=== PATIENT | male | born 1970 | race Caucasian/White ===

== ENCOUNTER 2021-06-07 21:43 | Outpatient (CLI) | payer BC, SELFPAY ==
[2021-06-07 22:13] LABS: Absolute Lymphocyte Count 2.09 X10^3/uL (0.83-4.51); Absolute Neutrophil Count 3.5 X10^3/uL (2.0-7.7); Basophil# 0.03 X10^3/uL; Basophil% 0.5 % (0-1); Eosinophil# 0.42 X10^3/uL; Eosinophils% 6.4 % (0-5); Hematocrit 42.8 % (40-54); Hemoglobin 14.7 g/dL (13.0-16.5); Lymphocyte # 2.09 X10^3/ul (0.83-4.51); Lymphocyte % 31.7 % (19-41); Mean Corp Hgb Conc 34.3 g/dL (32-36); Mean Corpuscular Hgb 30.2 pg (27.0-32.0); Mean Corpuscular Volume 87.9 fL (80-94); Monocyte# 0.54 X10^3/uL; Monocyte% 8.2 % (0-10); NRBC Flagged by Analyzer 0 % (0-5); Neutrophil % 52.9 % (47-70); Platelet Count 328 K/mm3 (150-450); RBC Distribution Width CV 12.2 % (11.6-14.6); RBC Distribution Width SD 39.2 fl (35.1-43.9); Red Blood Count 4.87 M/mm3 (4.6-6.2); White Blood Count 6.6 K/mm3 (4.4-11.0)
[2021-06-07 22:19] LABS: ALB/GLOB Ratio 1.2 RATIO (0.9-2.4); AST(SGOT) 24 U/L (15-37); Alanine Aminotransfer ALT/SGPT 45 U/L (16-61); Alkaline Phosphatase 66 U/L (45-117); Anion Gap 6 (5-15); BUN 20 mg/dL (7-18); BUN/Creat Ratio 17.4 RATIO (10-20); Calcium,Total 8.7 mg/dL (8.5-10.1); Chloride 107 mmol/L (98-107); Cholesterol 226 mg/dL (200); Creatinine, Serum 1.15 mg/dL (0.70-1.30); EST Glomerular Filtration Rate 72 mL/min (>60); Est Glom Filt Rate - Afr Amer 87 mL/min (>60); Globulin 3.3 g/dL (2.2-4.2); Glucose 104 mg/dL (74-106); High Density Lipoprotein 42 mg/dL; Potassium 3.9 mmol/L (3.5-5.1); Protein, Total 7.3 g/dL (6.4-8.2); Sodium Level 139 mmol/L (136-145); Thyroid Stim Hormone (TSH) 1.39 uIU/mL (0.358-3.74); Triglycerides 355 mg/dL; Very Low Density Lipoprotein 71 mg/dL (5-40)
== END 2021-06-07 23:59 | disposition home or self-care (01) ==
PROVIDERS: Referring Provider Nurse Practitioner; Visit Provider Nurse Practitioner
DX: I10 Essential (primary) hypertension (principal)
CPT/HCPCS: 80053; 80061; 84443; 85025

== ENCOUNTER → 2022-08-21 | Outpatient (CLI) | payer BC, SELFPAY ==
[2022-08-21 20:55] LABS: Absolute Lymphocyte Count 2.03 X10^3/uL (0.83-4.51); Absolute Neutrophil Count 4.3 X10^3/uL (2.0-7.7); Basophil# 0.04 X10^3/uL; Basophil% 0.6 % (0-1); Eosinophil# 0.26 X10^3/uL; Eosinophils% 3.6 % (0-5); Hematocrit 45.5 % (40-54); Lymphocyte # 2.03 X10^3/ul (0.83-4.51); Lymphocyte % 28.5 % (19-41); Mean Corp Hgb Conc 35.2 g/dL (32-36); Mean Corpuscular Hgb 31.3 pg (27.0-32.0); Mean Corpuscular Volume 88.9 fL (80-94); Mean Platelet Vol. 10.1 fl (6.2-12.0); Monocyte# 0.46 X10^3/uL; Monocyte% 6.5 % (0-10); NRBC Flagged by Analyzer 0 % (0-5); Neutrophil # 4.33 X10^3/uL (2.7-7.7); Neutrophil % 60.7 % (47-70); Platelet Count 341 K/mm3 (150-450); RBC Distribution Width CV 12.1 % (11.6-14.6); RBC Distribution Width SD 39.6 fl (35.1-43.9); Red Blood Count 5.12 M/mm3 (4.6-6.2); White Blood Count 7.1 K/mm3 (4.4-11.0)
[2022-08-21 21:16] LABS: ALB/GLOB Ratio 1.1 RATIO (0.9-2.4); AST(SGOT) 27 U/L (15-37); Alanine Aminotransfer ALT/SGPT 41 U/L (16-61); Alkaline Phosphatase 74 U/L (45-117); Anion Gap 5 (5-15); BUN 17 mg/dL (7-18); CRP, High Sensitivity Cardiac 0.46 mg/L; Calcium,Total 8.9 mg/dL (8.5-10.1); Chloride 106 mmol/L (98-107); Cholesterol 227 mg/dL (200); Creatinine, Serum 1.21 mg/dL (0.70-1.30); EST Glomerular Filtration Rate 67 mL/min (>60); Est Glom Filt Rate - Afr Amer 81 mL/min (>60); Globulin 3.7 g/dL (2.2-4.2); Glucose 114 mg/dL (74-106); High Density Lipoprotein 51 mg/dL; PSA,Total - Annual Screen 0.46 ng/mL (0.00-4.00); Potassium 4.2 mmol/L (3.5-5.1); Protein, Total 7.7 g/dL (6.4-8.2); Sodium Level 138 mmol/L (136-145); Triglycerides 507 mg/dL
== END | disposition home or self-care (01) ==
PROVIDERS: Visit Provider Nurse Practitioner
DX: I10 Essential (primary) hypertension (principal); E78.5 Hyperlipidemia, unspecified; R35.0 Frequency of micturition
CPT/HCPCS: 80053; 80061; 84153; 85025; 86141; G0103

== ENCOUNTER → 2023-03-08 | Outpatient (CLI) | payer BC, SELFPAY ==
--- OUTSIDE RECORDS SUMMARY | 2023-03-08 22:16 | XMS RPT_ITS | CCD ---
Author Name Unknown Address [address] [place] [address] Organization [facility] Care Team Providers Care Livestock Rancher Name Role Phone Unavailable Primary Care Provider Ms. Breann Hawkins Primary Care Unavailab Dr. Lucinda Ledbetter Attending Lucinda Hill DO Unavailable [phone] Unavailable AHSAN MAYEN Referring AHSAN Gallardo Attending AHSAN Gallardo Referring AHSAN Gallardo Attending AHSAN Gallardo Attending AHSAN Gallardo Attending AHSAN Gallardo Attending aMriah mendoza Medications Completed/Discontinued Medications Medication Drug Class(es) Dates Sig (Normalized) Sig (Original) ibuprofen 200 mg oral tablet (4 sources) Nonsteroidal Anti-inflammatory Drug take 1 tablet by mouth every six hours as needed ibuprofen (MOTRIN) 200 mg tablet Take 200 mg by mouth every 6 hours as needed. 0 Active Problems Problem Classification Problem Date Documented Da te Episodic/Chronic Essential hypertension (6 sources) Essential (primary) hypertension; Translations: [Unspecified essential hypertension] Onset: 08-20-2022 11-02-2022 Chronic Fracture of lower limb (10 sources) Displaced oblique fracture of shaft of right fibula, initial encounter for closed fracture; Translations: [Nondisplaced fracture of medial malleolus of right tibia, initial encounter for closed fracture] Onset: 10-30-2022 11-11-2022 Episodic Other injuries and conditions due to external causes (7 sources) Unspecified injury of right ankle, initial encounter; Translations: [Unspecified injury of right ankle, initial encounter] Onset: 09-05-2023 Episodic Other non-traumatic joint disorders (2 sources) Acute ankle pain; Translations: [Pain in right ankle and joints of right foot] 11-11-2022 Episodic Other non-traumatic joint disorders (1 source) Pain in right ankle and joints of right foot; Translations: [Acute right ankle pain] Onset: 11-05-2022 Episodic Unclassified (1 source) Established Patient Onset: 11-08-2022 Results Test Name Value Interpretation Reference Range Facil ity Vital Signs Date Time Vital Sign Value Performing Clinician Faci lity 01-10-2023 09:26-0500 Body height 177.8 cm Ahsan Faheem DPM Work Phone: [facility] 01-10-2023 09:26-0500 Body weight 83.92 kg Ahsan Faheem DPM Work Phone: [facility] 01-10-2023 09:26-0500 Respiratory rate 18 /min Ahsan Faheem DPM Work Phone: [facility] 12-13-2022 15:01-0400 Body height 175.3 cm Ahsan Faheem DPM Work Phone: [facility] 12-13-2022 15:01-0400 Body temperature 98.2 [degF] Ahsan Faheem DPM Work Phone: [facility] 12-13-2022 15:01-0400 Body weight 83.92 kg Ahsan Faheem DPM Work Phone: [facility] 11-22-2022 09:23-0400 Body height 177.8 cm Ahsan Faheem DPM Work Phone: [facility] 11-22-2022 09:23-0400 Body weight 83.92 kg Ahsan Faheem DPM Work Phone: [facility] 11-22-2022 09:23-0400 Respiratory rate 16 /min Ahsan Faheem DPM Work Phone: [facility] 11-08-2022 09:40-0400 Body height 177.8 cm Ahsan Faheem DPM Work Phone: [facility] 11-08-2022 09:40-0400 Body weight 83.92 kg Ahsan Faheem DPM Work Phone: [facility] 11-08-2022 09:40-0400 Respiratory rate 16 /min Ahsan Mayen DPM Work Phone: [facility] 10-30-2022 09:40-0400 Body temperature 97.7 [degF] Lucinda Joanne DO [facility] 10-30-2022 09:40-0400 Body weight 83.9 kg Lucinda Joanne DO [facility] 10-30-2022 09:40-0400 Diastolic blood pressure 110 mm[Hg] Lucinda Joanne DO [facility] 10-30-2022 09:40-0400 Heart rate 85 /min Lucinda Joanne DO [facility] 10-30-2022 09:40-0400 Respiratory rate 16 /min Lucinda Joanne DO [facility] 10-30-2022 09:40-0400 SaO2% (BldA) [Mass fraction] 97 % Lucinda Joanne DO [facility] 10-30-2022 09:40-0400 Systolic blood pressure 186 mm[Hg] Lucinda Joanne DO [facility] Encounters Encounter Date Encounter Type Care Provider Facility Start: 01-10-2023 End: 01-10-2023 ambulatory AHSAN MAYEN Facility:[facility] Start: 01-10-2023 End: 01-10-2023 Patient encounter procedure Ahsan Real Faheem DPM Work Phone: [facility] Procedures Date Procedure Procedure Detail Performing Clinician Start: 01-13-2023 Radex ankle complete minimum 3 views Melvin Beaujon DPM Work Phone: Start: 11-25-2022 Radex ankle complete minimum 3 views Melvin Beaujon DPM Work Phone: Start: 10-30-2022 Strapping ankle &/foot Lucinda Rubio DO Plan of Treatment Date Care Activity Detail Author Start: 10-30-2022 End: 10-30-2022 X-Ray External - [facility] Start: 10-26-2022 Covid-19 Vaccine ( season) Covid-19 Vaccine () [facility] Start: 10-26-2022 Influenza vaccination [facility] Start: 02-25-2022 DEPRESSION ASSESSMENT DEPRESSION ASSESSMENT [facility] Start: 09-10-2021 SHINGRIX VACCINE (1 of 2) SHINGRIX VACCINE (1 of 2) [facility] Start: 03-02-2021 Covid-19 Vaccine (3 - Pfizer series) Covid-19 Vaccine (3 - Pfizer series) [facility] Start: 09-10-2016 COLOGUARD (FIT-DNA) COLOGUARD (FIT-DNA) [facility] Start: 09-10-2016 Colonoscopy COLONOSCOPY [facility] Start: 09-10-2016 COLORECTAL CANCER SCREENING COLORECTAL CANCER SCREENING [facility] Start: 09-10-[address] COLONOGRAPHY [facility] Start: 09-10-2016 DIABETES SCREEN DIABETES SCREEN [facility] Start: 09-10-2016 Diabetes Screening Diabetes Screening [facility] Start: 09-10-2016 FECAL OCCULT BLOOD FECAL OCCULT BLOOD [facility] Start: 09-10-2016 SIGMOIDOSCOPY SIGMOIDOSCOPY [facility] Start: 09-10-2006 Lipid 1996 panel - Serum or Plasma Lipid Screening [facility] Start: 09-10-2006 LIPID SCREEN LIPID SCREEN [facility] Start: 09-10-1990 Urine microalbumin profile [facility] Start: 09-10-1989 Annual PCP Team Chronic Disease Visit Annual PCP Team Chronic Disease Visit [facility] Start: 09-10-1989 BP Controlled (<130/80) BP Controlled (<130/80) [facility] Start: 09-10-1989 HEPATITIS C SCREENING HEPATITIS C SCREENING [facility] Start: 09-10-1989 HIV SCREENING HIV SCREENING [facility] Start: 03-13-1972 COVID-19 VACCINE (#1) COVID-19 VACCINE (#1) [facility] Start: 1970 HEPATITIS B (1 of 3 - 3-dose series) HEPATITIS B (1 of 3 - 3-dose series) [facility] Start: 1970 Hepatitis B Vaccine (1 of 3 - 3-dose series) Hepatitis B Vaccine (1 of 3 - 3-dose series) [facility] Payers Date Payer Category Payer Unknown [employer]ICHOLE FRANCIS PPO [id number] 2019-Present [phone] [id number] [place] [address] PPO [id number] 2019 Unknown [id number] 1970 Unknown [id number] Social History Date Type Detail Facility Tobacco smoking stat [facility] Tobacco smoking consumption unknown [facility] Start: 1970 Sex Assigned At Not on file [facility] Start: 11-02-2022 End: 11-08-2022 Gender identity Not on file [facility] Start: 11-02-2022 End: 11-08-2022 Patient currently uses alcohol Patient currently uses alcohol. [facility] Assertion Never smoker (Ne jimbo Smoked) [facility] Start: 11-02-2022 [facility] End: 02-26-2012 History of tobacco use Current smoker [facility] End: 02-26-2012 History of tobacco use Cigarette Smoker [facility] Start: 11-02-2022 Tobacco use and exposure Former smokeless tobacco user [facility] End: 02-25-2022 History of tobacco use User of smokeless tobacco [facility] Start: 11-08-2022 End: 01-10-2023 Alcohol intake Current drinker of alcohol (finding) [facility] National Score (1-100), lower number is lower risk 59 [facility] Start: 11-02-2022 Alcohol Comment social [place] [facility] Clinical Notes 10-31-2022 to 01-13-2023 Ahsan Mayen DPM - 01/13/2023 10:16 AM Yumiko Gutierrez MA - 01/10/2023 9:26 AM Ahsan Deras DPM - 12/13/2022 3:05 PM Jeffery Galindo Tech - 12/13/2022 3:00 PM EDT Note Date & Type Note Facility 01-13-2023 Note HNO ID: [id number] Author: Ahsan Mayen DPM Service: ? Author Type: Physician Type: Progress Notes Filed: 01/30/2023 8:56 AM Note Text: CC: right ankle injury HPI: This 52 year old male with PMH indicated below presents today for follow up of right fibular fracture. Initial injury occurred on 10/28/22. Since last visit patient has been transitioned out of wearing the lace up ankle brace and has been weight bearing in regular shoes. He states he is doing well and is having minimal pain at this point. Denies any other new pedal complaints today. No primary care provider on file. PAST MEDICAL HISTORY Diagnosis Date Essential hypertension Current Outpatient Medications Medication Sig Dispense Refill metoprolol tartrate, short acting, (LOPRESSOR) 50 mg tablet Take 50 mg by mouth twice daily. lisinopril (ZESTRIL) 20 mg tablet Take 1 tablet by mouth every afternoon. ibuprofen (MOTRIN) 200 mg tablet Take 200 mg by mouth every 6 hours as needed. No current facility-administered medications for this visit. ALLERGIES No Known Allergies PAST SURGICAL HISTORY Procedure Laterality Date KNEE SURGERY HX Right Social History Tobacco Use Smoking status: Former Types: Cigarettes Quit date: 2012 Years since quittin. Smokeless tobacco: Former Quit date: 2022 Substance Use Topics Alcohol use: Yes Comment: social Drug use: Never History reviewed. No pertinent family history. REVIEW OF SYSTEMS See Tech Note Physical examination: On General Observation: Patient is a pleasant, cooperative, well developed 52 year old adult male. The patient is alert and oriented to time, place and person. Patient has normal affect and mood. Resp 18 Ht 177.8 cm (5' 10 ) Wt 83.9 kg (185 lb) BMI 26.54 kg/m? Patient presents WBAT in normal shoes Vascular: DP and PT pulses are palpable. CFT less than 3 seconds to all digits bilateral. Skin temperature is warm to warm from proximal to distal bilateral. Hair growth is noted. No edema noted overlying right ankle. Neuro: Light touch intact bilateral. No clonus noted. Derm: Skin texture and turgor within normal limits. No rashes, subcutaneous nodules, or open lesions noted. No hyperkeratotic tissue. No ecchymosis noted. No fracture blisters noted. Musc: Ecchymosis is Absent to the right. Edema is absent over the lateral malleolus. Palpation to the medial ankle is non-painful. No high fibular pain is noted. There is not pain to palpation of the syndesmosis or with external rotation of the foot at the ankle joint. No pain to palpation is noted overlying the lateral malleolus. No pain to palpation is noted overlying the ATFL. The peroneals appear to be intact and are not tender. No pain to the fifth metatarsal base. No pain to the medial aspect of the midfoot or navicular tuberosity. No pain to palpation anterior calcaneal process. Anterior drawer is negative. Muscle strength testing is full. Last MRI Ankle - Impression Only MRI ANKLE WO IVCON RIGHT Exam End: 11/05/2022 2:22 PM (Final result) Impression: IMPRESSION: 1. Minimally displaced oblique fracture through the lateral malleolus. 2. Complete rupture of the anterior talofibular ligament. 3. Calcaneofibular ligament is not visualized and is most likely torn. 4. Spring ligament is not clearly visualized. 5. Small tibiotalar joint effusion.... IMAGING: three views of the right ankle were obtained and evaluated today. Impression: Nearly fully healed minimally displaced ramirez B fracture of the fibula. Fibula is out to length. Ankle mortise intact with no increase in medial clear space. Normal tib fib overlap. Impression: This is a 52 year old patient presenting with isolated fibular fracture right ankle. Plan: A comprehensive history and physical examination were preformed. The patient was educated on clinical and radiographic findings, diagnosis and treatment plans. Patient state that he understands all that has been explained and all questions were answered to his apparent satisfaction. - Etiology and tx options were discussed in detail with the pt - xrays taken and reviewed with patient - Patient is progressing well with minimal symptoms at this time. Recommend continued WBAT in supportive shoe gear with ASO when performing higher impact activity for the next 4 weeks. Otherwise, he can WBAT in normal shoes. - Discussed formal PT which patient defers. Dispensed home ankle strengthening exercises and thera band. - Activities to tolerance -Follow up as needed Melvin Bonner DPM PGY-3 I personally saw and evaluated the patient. I reviewed the resident's note. I agree with the resident's assessment and plan unless otherwise noted. Ahsan Mayen DPM, [facility] 01-13-2023 History of Presen t illness Narrative CC: right ankle injury HPI: This 52 year old male with PMH indicated below presents today for follow up of right fibular fracture. Initial injury occurred on 10/28/22. Since last visit patient has been transitioned out of wearing the lace up ankle brace and has been weight bearing in regular shoes. He states he is doing well and is having minimal pain at this point. Denies any other new pedal complaints today. No primary care provider on file. PAST MEDICAL HISTORY Diagnosis Date Essential hypertension Current Outpatient Medications Medication Sig Dispense Refill metoprolol tartrate, short acting, (LOPRESSOR) 50 mg tablet Take 50 mg by mouth twice daily. lisinopril (ZESTRIL) 20 mg tablet Take 1 tablet by mouth every afternoon. ibuprofen (MOTRIN) 200 mg tablet Take 200 mg by mouth every 6 hours as needed. No current facility-administered medications for this visit. ALLERGIES No Known Allergies PAST SURGICAL HISTORY Procedure Laterality Date KNEE SURGERY HX Right Social History Tobacco Use Smoking status: Former Types: Cigarettes Quit date: 2012 Years since quittin.8 Smokeless tobacco: Former Quit date: 2022 Substance Use Topics Alcohol use: Yes Comment: social Drug use: Never History reviewed. No pertinent family history. REVIEW OF SYSTEMS See Tech Note Physical examination: On General Observation: Patient is a pleasant, cooperative, well developed 52 year old adult male. The patient is alert and oriented to time, place and person. Patient has normal affect and mood. Resp 18 Ht 177.8 cm (5' 10 ) Wt 83.9 kg (185 lb) BMI 26.54 kg/m Patient presents WBAT in normal shoes Vascular: DP and PT pulses are palpable. CFT less than 3 seconds to all digits bilateral. Skin temperature is warm to warm from proximal to distal bilateral. Hair growth is noted. No edema noted overlying right ankle. Neuro: Light touch intact bilateral. No clonus noted. Derm: Skin texture and turgor within normal limits. No rashes, subcutaneous nodules, or open lesions noted. No hyperkeratotic tissue. No ecchymosis noted. No fracture blisters noted. Musc: Ecchymosis is Absent to the right. Edema is absent over the lateral malleolus. Palpation to the medial ankle is non-painful. No high fibular pain is noted. There is not pain to palpation of the syndesmosis or with external rotation of the foot at the ankle joint. No pain to palpation is noted overlying the lateral malleolus. No pain to palpation is noted overlying the ATFL. The peroneals appear to be intact and are not tender. No pain to the fifth metatarsal base. No pain to the medial aspect of the midfoot or navicular tuberosity. No pain to palpation anterior calcaneal process. Anterior drawer is negative. Muscle strength testing is full. Last MRI Ankle - Impression Only MRI ANKLE WO IVCON RIGHT Exam End: 11/05/2022 2:22 PM (Final result) Impression: IMPRESSION: 1. Minimally displaced oblique fracture through the lateral malleolus. 2. Complete rupture of the anterior talofibular ligament. 3. Calcaneofibular ligament is not visualized and is most likely torn. 4. Spring ligament is not clearly visualized. 5. Small tibiotalar joint effusion.... IMAGING: three views of the right ankle were obtained and evaluated today. Impression: Nearly fully healed minimally displaced ramirez B fracture of the fibula. Fibula is out to length. Ankle mortise intact with no increase in medial clear space. Normal tib fib overlap. Impression: This is a 52 year old patient presenting with isolated fibular fracture right ankle. Plan: A comprehensive history and physical examination were preformed. The patient was educated on clinical and radiographic findings, diagnosis and treatment plans. Patient state that he understands all that has been explained and all questions were answered to his apparent satisfaction. - Etiology and tx options were discussed in detail with the pt - xrays taken and reviewed with patient - Patient is progressing well with minimal symptoms at this time. Recommend continued WBAT in supportive shoe gear with ASO when performing higher impact activity for the next 4 weeks. Otherwise, he can WBAT in normal shoes. - Discussed formal PT which patient defers. Dispensed home ankle strengthening exercises and thera band. - Activities to tolerance -Follow up as needed Melvin Bonner DPM PGY-3 I personally saw and evaluated the patient. I reviewed the resident's note. I agree with the resident's assessment and plan unless otherwise noted. Ahsan Mayen DPM, FACFAS REVIEW OF SYSTEMS: GENERAL: Well developed, well nourished. No acute distress PAIN: Negative for pain, history of chronic pain or current treatment for chronic pain conditions CARDIOVASCULAR: High blood pressure MSK: Negative for joint swelling SKIN: Negative for lesions, rash, itching, metal sensitivity NEURO: Negative for seizure, trauma, numbness/tingling of extremities. ENDOCRINE: Negative for diabetic associated symptoms HEMATOLOGY: Negative for excessive bleeding, clots, bleeding disorders. Yumiko Padilla MA documented in this encounter [facility] 01-10-2023 Note HNO ID: [id number] Author: Yumiko Padilla MA Service: ? Author Type: Custom Dressmaker Type: Progress Notes Filed: 01/30/2023 8:56 AM Note Text: REVIEW OF SYSTEMS: GENERAL: Well developed, well nourished. No acute distress PAIN: Negative for pain, history of chronic pain or current treatment for chronic pain conditions CARDIOVASCULAR: High blood pressure MSK: Negative for joint swelling SKIN: Negative for lesions, rash, itching, metal sensitivity NEURO: Negative for seizure, trauma, numbness/tingling of extremities. ENDOCRINE: Negative for diabetic associated symptoms HEMATOLOGY: Negative for excessive bleeding, clots, bleeding disorders. Yumiko Padilla MA [facility] 12-13-2022 Note HNO ID: [id number] Author: Ahsan Mayen DPM Service: ? Author Type: Physician Type: Progress Notes Filed: 12/26/2022 8:55 PM Note Text: CC: right ankle injury HPI: This 52 year old male with PMH indicated below presents today for follow up of right fibular fracture. Since last visit patient has been WBAT to the RLE ASO and supportive shoe gear. Relates mild occasional pain but overall improved. Relates resolution of edema. Has not returned to full activity but is gradually progressing. He denies any other pedal complaints today. No primary care provider on file. PAST MEDICAL HISTORY Diagnosis Date Essential hypertension Current Outpatient Medications Medication Sig Dispense Refill metoprolol tartrate, short acting, (LOPRESSOR) 50 mg tablet Take 50 mg by mouth twice daily. lisinopril (ZESTRIL) 20 mg tablet Take 1 tablet by mouth every afternoon. ibuprofen (MOTRIN) 200 mg tablet Take 200 mg by mouth every 6 hours as needed. No current facility-administered medications for this visit. ALLERGIES No Known Allergies PAST SURGICAL HISTORY Procedure Laterality Date KNEE SURGERY HX Right Social History Tobacco Use Smoking status: Former Types: Cigarettes Quit date: 2012 Years since quittin.8 Smokeless tobacco: Former Quit date: 2022 Substance Use Topics Alcohol use: Yes Comment: social Drug use: Never No family history on file. REVIEW OF SYSTEMS See Tech Note Physical examination: On General Observation: Patient is a pleasant, cooperative, well developed 52 year old adult male. The patient is alert and oriented to time, place and person. Patient has normal affect and mood. Temp 36.8 ?C (98.2 ?F) Ht 175.3 cm (5' 9 ) Wt 83.9 kg (185 lb) BMI 27.32 kg/m? Patient presents WBAT in CAM Boot Vascular: DP and PT pulses are palpable. CFT less than 3 seconds to all digits bilateral. Skin temperature is warm to warm from proximal to distal bilateral. Hair growth is noted. No edema noted overlying right ankle. Neuro: Light touch intact bilateral. No clonus noted. Derm: Skin texture and turgor within normal limits. No rashes, subcutaneous nodules, or open lesions noted. No hyperkeratotic tissue. No ecchymosis noted. No fracture blisters noted. Musc: Ecchymosis is Absent to the right. Edema is absent over the lateral malleolus. Palpation to the medial ankle is non-painful. No high fibular pain is noted. There is not pain to palpation of the syndesmosis or with external rotation of the foot at the ankle joint. No pain to palpation is noted overlying the lateral malleolus. No pain to palpation is noted overlying the ATFL. The peroneals appear to be intact and are not tender. No pain to the fifth metatarsal base. No pain to the medial aspect of the midfoot or navicular tuberosity. No pain to palpation anterior calcaneal process. Anterior drawer is negative. Muscle strength testing is full. Last MRI Ankle - Impression Only MRI ANKLE WO IVCON RIGHT Exam End: 11/05/2022 2:22 PM (Final result) Impression: IMPRESSION: 1. Minimally displaced oblique fracture through the lateral malleolus. 2. Complete rupture of the anterior talofibular ligament. 3. Calcaneofibular ligament is not visualized and is most likely torn. 4. Spring ligament is not clearly visualized. 5. Small tibiotalar joint effusion.... Impression: This is a 52 year old patient presenting with isolated fibular fracture right ankle. Plan: A comprehensive history and physical examination were preformed. The patient was educated on clinical and radiographic findings, diagnosis and treatment plans. Patient state that he understands all that has been explained and all questions were answered to his apparent satisfaction. - Etiology and tx options were discussed in detail with the pt. - Patient is progressing well with minimal symptoms at this time. Recommend continued WBAT in supportive shoe gear with ASO when performing higher impact activity. Patient ok to ambulate at home without ASO. Continue ASO use for next 5-6 weeks. Continue OTC analgesia as needed. Activity as dictated by symptoms. RTC 4 weeks with XR I personally saw and evaluated the patient. I reviewed the resident's note. I agree with the resident's assessment and plan unless otherwise noted. Ahsan Mayen DPM, [facility] 12-13-2022 Note HNO ID: [id number] Author: Jeffery Melton Tech Service: ? Author Type: Bag Bleacher Type: Progress Notes Filed: 12/26/2022 8:55 PM Note Text: REVIEW OF SYSTEMS: GENERAL: Well developed, well nourished. No acute distress PAIN: Negative for pain, history of chronic pain or current treatment for chronic pain conditions CARDIOVASCULAR: Negative for chest pain, leg swelling and palpations. MSK: Negative for joint swelling SKIN: Negative for lesions, rash, itching, metal sensitivity NEURO: Negative for seizure, trauma, numbness/tingling of extremities. ENDOCRINE: Negative for diabetic associated symptoms HEMATOLOGY: Negative for excessive bleeding, clots, bleeding disorders. [facility] 12-13-2022 History of Presen t illness Narrative CC: right ankle injury HPI: This 52 year old male with PMH indicated below presents today for follow up of right fibular fracture. Since last visit patient has been WBAT to the E ASO and supportive shoe gear. Relates mild occasional pain but overall improved. Relates resolution of edema. Has not returned to full activity but is gradually progressing. He denies any other pedal complaints today. No primary care provider on file. PAST MEDICAL HISTORY Diagnosis Date Essential hypertension Current Outpatient Medications Medication Sig Dispense Refill metoprolol tartrate, short acting, (LOPRESSOR) 50 mg tablet Take 50 mg by mouth twice daily. lisinopril (ZESTRIL) 20 mg tablet Take 1 tablet by mouth every afternoon. ibuprofen (MOTRIN) 200 mg tablet Take 200 mg by mouth every 6 hours as needed. No current facility-administered medications for this visit. ALLERGIES No Known Allergies PAST SURGICAL HISTORY Procedure Laterality Date KNEE SURGERY HX Right Social History Tobacco Use Smoking status: Former Types: Cigarettes Quit date: 2012 Years since quittin.8 Smokeless tobacco: Former Quit date: 2022 Substance Use Topics Alcohol use: Yes Comment: social Drug use: Never No family history on file. REVIEW OF SYSTEMS See Tech Note Physical examination: On General Observation: Patient is a pleasant, cooperative, well developed 52 year old adult male. The patient is alert and oriented to time, place and person. Patient has normal affect and mood. Temp 36.8 C (98.2 F) Ht 175.3 cm (5' 9 ) Wt 83.9 kg (185 lb) BMI 27.32 kg/m Patient presents WBAT in CAM Boot Vascular: DP and PT pulses are palpable. CFT less than 3 seconds to all digits bilateral. Skin temperature is warm to warm from proximal to distal bilateral. Hair growth is noted. No edema noted overlying right ankle. Neuro: Light touch intact bilateral. No clonus noted. Derm: Skin texture and turgor within normal limits. No rashes, subcutaneous nodules, or open lesions noted. No hyperkeratotic tissue. No ecchymosis noted. No fracture blisters noted. Musc: Ecchymosis is Absent to the right. Edema is absent over the lateral malleolus. Palpation to the medial ankle is non-painful. No high fibular pain is noted. There is not pain to palpation of the syndesmosis or with external rotation of the foot at the ankle joint. No pain to palpation is noted overlying the lateral malleolus. No pain to palpation is noted overlying the ATFL. The peroneals appear to be intact and are not tender. No pain to the fifth metatarsal base. No pain to the medial aspect of the midfoot or navicular tuberosity. No pain to palpation anterior calcaneal process. Anterior drawer is negative. Muscle strength testing is full. Last MRI Ankle - Impression Only MRI ANKLE WO IVCON RIGHT Exam End: 11/05/2022 2:22 PM (Final result) Impression: IMPRESSION: 1. Minimally displaced oblique fracture through the lateral malleolus. 2. Complete rupture of the anterior talofibular ligament. 3. Calcaneofibular ligament is not visualized and is most likely torn. 4. Spring ligament is not clearly visualized. 5. Small tibiotalar joint effusion.... Impression: This is a 52 year old patient presenting with isolated fibular fracture right ankle. Plan: A comprehensive history and physical examination were preformed. The patient was educated on clinical and radiographic findings, diagnosis and treatment plans. Patient state that he understands all that has been explained and all questions were answered to his apparent satisfaction. - Etiology and tx options were discussed in detail with the pt. - Patient is progressing well with minimal symptoms at this time. Recommend continued WBAT in supportive shoe gear with ASO when performing higher impact activity. Patient ok to ambulate at home without ASO. Continue ASO use for next 5-6 weeks. Continue OTC analgesia as needed. Activity as dictated by symptoms. RTC 4 weeks with XR I personally saw and evaluated the patient. I reviewed the resident's note. I agree with the resident's assessment and plan unless otherwise noted. Ahsan Mayen DPM, FACFAS REVIEW OF SYSTEMS: GENERAL: Well developed, well nourished. No acute distress PAIN: Negative for pain, history of chronic pain or current treatment for chronic pain conditions CARDIOVASCULAR: Negative for chest pain, leg swelling and palpations. MSK: Negative for joint swelling SKIN: Negative for lesions, rash, itching, metal sensitivity NEURO: Negative for seizure, trauma, numbness/tingling of extremities. ENDOCRINE: Negative for diabetic associated symptoms HEMATOLOGY: Negative for excessive bleeding, clots, bleeding disorders. documented in this encounter [facility] 11-22-2022 Note HNO ID: [id number] Author: Ahsan Mayen DPM Service: ? Author Type: Physician Type: Progress Notes Filed: 12/03/2022 10:30 AM Note Text: CC: right ankle injury HPI: This 52 year old male with PMH indicated below presents today for follow up of right fibular fracture. Since last visit patient has been WBAT to the E in a CAM boot. He does state that the boot causes him a lot of discomfort and he has often been ambulating without the boot. Previous MRI was negative for deltoid rupture. He denies any other pedal complaints today. No primary care provider on file. PAST MEDICAL HISTORY Diagnosis Date Essential hypertension Current Outpatient Medications Medication Sig Dispense Refill metoprolol tartrate, short acting, (LOPRESSOR) 50 mg tablet Take 50 mg by mouth twice daily. lisinopril (ZESTRIL) 20 mg tablet Take 1 tablet by mouth every afternoon. ibuprofen (MOTRIN) 200 mg tablet Take 200 mg by mouth every 6 hours as needed. No current facility-administered medications for this visit. ALLERGIES No Known Allergies PAST SURGICAL HISTORY Procedure Laterality Date KNEE SURGERY HX Right Social History Tobacco Use Smoking status: Former Types: Cigarettes Quit date: 2012 Years since quittin.7 Smokeless tobacco: Former Quit date: 2022 Substance Use Topics Alcohol use: Yes Comment: social Drug use: Never No family history on file. REVIEW OF SYSTEMS See Tech Note Physical examination: On General Observation: Patient is a pleasant, cooperative, well developed 52 year old adult male. The patient is alert and oriented to time, place and person. Patient has normal affect and mood. There were no vitals taken for this visit. Patient presents WBAT in CAM Boot Vascular: DP and PT pulses are palpable. CFT less than 3 seconds to all digits bilateral. Skin temperature is warm to warm from proximal to distal bilateral. Hair growth is noted. Minimal edema noted overlying right ankle. Neuro: Light touch intact bilateral. No clonus noted. Derm: Skin texture and turgor within normal limits. Toenails normal in appearance. Webspaces 1-4 clean, dry, intact bilateral. No rashes, subcutaneous nodules, or open lesions noted. No hyperkeratotic tissue. No ecchymosis noted. No fracture blisters noted. Musc: Ecchymosis is Absent to the right. Edema is mild over the lateral malleolus. Edema is mild over the medial malleolus. Palpation to the medial ankle is non-painful. No high fibular pain is noted. There is not pain to palpation of the syndesmosis or with external rotation of the foot at the ankle joint. Pain to palpation is noted overlying the lateral malleolus. Pain to palpation is noted overlying the ATFL. The peroneals appear to be intact and are tender. No pain to the fifth metatarsal base. No pain to the medial aspect of the midfoot or navicular tuberosity. No pain to palpation anterior calcaneal process. Ankle stability testing deferred due to known fracture. Muscle strength testing is full. Imagin views of the right ankle were obtained and evaluated today. Impression: Ramirez B nondisplaced fibular fracture with interval healing noted across fracture site. Ankle mortise is well aligned with no increase in medial clear space and good tib fib overlap. No interval displacement of fracture. Last MRI Ankle - Impression Only MRI ANKLE WO IVCON RIGHT Exam End: 11/05/2022 2:22 PM (Final result) Impression: IMPRESSION: 1. Minimally displaced oblique fracture through the lateral malleolus. 2. Complete rupture of the anterior talofibular ligament. 3. Calcaneofibular ligament is not visualized and is most likely torn. 4. Spring ligament is not clearly visualized. 5. Small tibiotalar joint effusion.... Impression: This is a 52 year old patient presenting with isolated fibular fracture right ankle. Plan: A comprehensive history and physical examination were preformed. The patient was educated on clinical and radiographic findings, diagnosis and treatment plans. Patient state that he understands all that has been explained and all questions were answered to his apparent satisfaction. - Etiology and tx options were discussed in detail with the pt. - Patient reporting significant discomfort in CAM boot. He ins ok to transition to NWB in a lace up ankle brace. He is to remain NWB for the next 7 days at which point he may begin transitioning to WBAT in the lace up ankle brace. - Follow up in 3 weeks Melvin Bonner DPM PGY- 3 I personally saw and evaluated the patient. I reviewed the resident's note. I agree with the resident's assessment and plan unless otherwise noted. Ahsan Mayen DPM, FACFAS [facility] 11-22-2022 Note HNO ID: [id number] Author: Roger De Souza Tech Service: ? Author Type: Bag Bleacher Type: Progress Notes Filed: 12/03/2022 10:30 AM Note Text: REVIEW OF SYSTEMS: GENERAL: Well developed, well nourished. No acute distress PAIN: Negative for pain, history of chronic pain or current treatment for chronic pain conditions CARDIOVASCULAR: Negative for chest pain, leg swelling and palpations. MSK: Negative for joint swelling SKIN: Negative for lesions, rash, itching, metal sensitivity NEURO: Negative for seizure, trauma, numbness/tingling of extremities. ENDOCRINE: Negative for diabetic associated symptoms HEMATOLOGY: Negative for excessive bleeding, clots, bleeding disorders. [facility] 11-22-2022 History of Presen t illness Narrative CC: right ankle injury HPI: This 52 year old male with PMH indicated below presents today for follow up of right fibular fracture. Since last visit patient has been WBAT to the RLE in a CAM boot. He does state that the boot causes him a lot of discomfort and he has often been ambulating without the boot. Previous MRI was negative for deltoid rupture. He denies any other pedal complaints today. No primary care provider on file. PAST MEDICAL HISTORY Diagnosis Date Essential hypertension Current Outpatient Medications Medication Sig Dispense Refill metoprolol tartrate, short acting, (LOPRESSOR) 50 mg tablet Take 50 mg by mouth twice daily. lisinopril (ZESTRIL) 20 mg tablet Take 1 tablet by mouth every afternoon. ibuprofen (MOTRIN) 200 mg tablet Take 200 mg by mouth every 6 hours as needed. No current facility-administered medications for this visit. ALLERGIES No Known Allergies PAST SURGICAL HISTORY Procedure Laterality Date KNEE SURGERY HX Right Social History Tobacco Use Smoking status: Former Types: Cigarettes Quit date: 2012 Years since quittin.7 Smokeless tobacco: Former Quit date: 2022 Substance Use Topics Alcohol use: Yes Comment: social Drug use: Never No family history on file. REVIEW OF SYSTEMS See Tech Note Physical examination: On General Observation: Patient is a pleasant, cooperative, well developed 52 year old adult male. The patient is alert and oriented to time, place and person. Patient has normal affect and mood. There were no vitals taken for this visit. Patient presents WBAT in [facility] Boot Vascular: DP and PT pulses are palpable. CFT less than 3 seconds to all digits bilateral. Skin temperature is warm to warm from proximal to distal bilateral. Hair growth is noted. Minimal edema noted overlying right ankle. Neuro: Light touch intact bilateral. No clonus noted. Derm: Skin texture and turgor within normal limits. Toenails normal in appearance. Webspaces 1-4 clean, dry, intact bilateral. No rashes, subcutaneous nodules, or open lesions noted. No hyperkeratotic tissue. No ecchymosis noted. No fracture blisters noted. Musc: Ecchymosis is Absent to the right. Edema is mild over the lateral malleolus. Edema is mild over the medial malleolus. Palpation to the medial ankle is non-painful. No high fibular pain is noted. There is not pain to palpation of the syndesmosis or with external rotation of the foot at the ankle joint. Pain to palpation is noted overlying the lateral malleolus. Pain to palpation is noted overlying the ATFL. The peroneals appear to be intact and are tender. No pain to the fifth metatarsal base. No pain to the medial aspect of the midfoot or navicular tuberosity. No pain to palpation anterior calcaneal process. Ankle stability testing deferred due to known fracture. Muscle strength testing is full. Imagin views of the right ankle were obtained and evaluated today. Impression: Ramirez B nondisplaced fibular fracture with interval healing noted across fracture site. Ankle mortise is well aligned with no increase in medial clear space and good tib fib overlap. No interval displacement of fracture. Last MRI Ankle - Impression Only MRI ANKLE WO IVCON RIGHT Exam End: 11/05/2022 2:22 PM (Final result) Impression: IMPRESSION: 1. Minimally displaced oblique fracture through the lateral malleolus. 2. Complete rupture of the anterior talofibular ligament. 3. Calcaneofibular ligament is not visualized and is most likely torn. 4. Spring ligament is not clearly visualized. 5. Small tibiotalar joint effusion.... Impression: This is a 52 year old patient presenting with isolated fibular fracture right ankle. Plan: A comprehensive history and physical examination were preformed. The patient was educated on clinical and radiographic findings, diagnosis and treatment plans. Patient state that he understands all that has been explained and all questions were answered to his apparent satisfaction. - Etiology and tx options were discussed in detail with the pt. - Patient reporting significant discomfort in CAM boot. He ins ok to transition to NWB in a lace up ankle brace. He is to remain NWB for the next 7 days at which point he may begin transitioning to WBAT in the lace up ankle brace. - Follow up in 3 weeks Melvin Bonner DPM PGY- 3 I personally saw and evaluated the patient. I reviewed the resident's note. I agree with the resident's assessment and plan unless otherwise noted. Ahsan Mayen DPM, FACFAS REVIEW OF SYSTEMS: GENERAL: Well developed, well nourished. No acute distress PAIN: Negative for pain, history of chronic pain or current treatment for chronic pain conditions CARDIOVASCULAR: Negative for chest pain, leg swelling and palpations. MSK: Negative for joint swelling SKIN: Negative for lesions, rash, itching, metal sensitivity NEURO: Negative for seizure, trauma, numbness/tingling of extremities. ENDOCRINE: Negative for diabetic associated symptoms HEMATOLOGY: Negative for excessive bleeding, clots, bleeding disorders. documented in this encounter [facility] 11-18-2022 Note HNO ID: [id number] Author: Ahsan Mayen DPM Service: ? Author Type: Physician Type: Progress Notes Filed: 11/21/2022 4:36 PM Note Text: CC: right ankle injury HPI: This 52 year old male with PMH indicated below presents today for right ankle injury. Patient states that he injured the Right Ankle on 10/28/2022. States he works for [employer]. 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 He states that he went to Urgent Care on 10/30/2022 where x-rays were taken and he was told that he had a right ankle fracture. Patient states has not applied weight to the injured extremity since that time. Pain is moderate, rated as 7/10. Patient denies to numbness and tingling. denies, admits to use of analgesics, with relief. Denies any current nausea, vomiting, fever, chills, shortness of breath, chest pain or calf pain. Denies any other pedal complaints. No primary care provider on file. PAST MEDICAL HISTORY Diagnosis Date Essential hypertension Current Outpatient Medications Medication Sig Dispense Refill lisinopril (ZESTRIL) 20 mg tablet Take 1 tablet by mouth every afternoon. ibuprofen (MOTRIN) 200 mg tablet Take 200 mg by mouth every 6 hours as needed. metoprolol tartrate, short acting, (LOPRESSOR) 50 mg tablet Take 50 mg by mouth twice daily. No current facility-administered medications for this visit. ALLERGIES No Known Allergies PAST SURGICAL HISTORY Procedure Laterality Date KNEE SURGERY HX Right Social History Tobacco Use Smoking status: Former Types: Cigarettes Quit date: 2012 Years since quittin.7 Smokeless tobacco: Former Quit date: 2022 Substance Use Topics Alcohol use: Yes Comment: social Drug use: Never History reviewed. No pertinent family history. REVIEW OF SYSTEMS See tech note MSK: + as noted in HPI. Physical examination: On General Observation: Patient is a pleasant, cooperative, well developed 52 year old adult male. The patient is alert and oriented to time, place and person. Patient has normal affect and mood. Resp 18 Ht 177.8 cm (5' 10 ) Wt 83.9 kg (185 lb) BMI 26.54 kg/m? Patient presents in posterior splint today. Vascular: DP and PT pulses are palpable. CFT less than 3 seconds to all digits bilateral. Skin temperature is warm to warm from proximal to distal bilateral. Hair growth is noted. Positive edema noted overlying global right ankle. No varicosities noted. Neuro: Light touch intact bilateral. Protective sensation intact at all pedal sites via [place] 5.07 monofilament bilateral. Proprioception intact at the hallux bilateral. No clonus noted. Babinski reflex not elicited bilateral. Derm: Skin texture and turgor within normal limits. Toenails normal in appearance. Webspaces 1-4 clean, dry, intact bilateral. No rashes, subcutaneous nodules, or open lesions noted. No hyperkeratotic tissue. + ecchymosis noted to global right ankle. No fracture blisters noted. Musc: Ecchymosis is Present to the right. Edema is moderate over the lateral malleolus. Edema is moderate over the medial malleolus. Palpation to the medial ankle is painful. No high fibular pain is noted. There is pain to palpation of the syndesmosis or with external rotation of the foot at the ankle joint. Pain to palpation is noted overlying the lateral malleolus. Pain to palpation is noted overlying the ATFL and CFL. The peroneals appear to be intact and are tender. No pain to the fifth metatarsal base. No pain to the medial aspect of the midfoot or navicular tuberosity. No pain to palpation anterior calcaneal process. Ankle stability testing deferred due to known fracture. Muscle strength testing is guarded. Radiographs: Multiple views of the right ankle were taken today. Radiographic impression: Complete extra-articular nondisplaced, oblique ramirez B fracture noted to lateral malleolus. Fibular does appear out to length. There is questionable medial clear space widening noted. On gravity stress view 6 mm of clear space noted. There is a medial malleolar fracture. Tib-fib overlap does appear to be within normal limits. There is not a posterior malleolar fracture noted. No bony cyst or tumors noted. Impression: This is a 52 year old patient presenting with closed ankle fracture of the right ankle with concern for deltoid injury Plan: - A comprehensive history and physical examination were preformed. The patient was educated on clinical and radiographic findings, diagnosis and treatment plans. Patient state that he understands all that has been explained and all questions were answered to his apparent satisfaction. - Etiology and tx options were discussed in detail with the pt. - Xray of ankle taken and reviewed. Additional gravity stress view obtained. Questionable clear space noted. - Order for MRI to assess for deltoid instability - Advised patient on need for nonweightbearing to allow for (more content not included)... [facility] 11-11-2022 Note HNO ID: [id number] Author: Ahsan Mayen DPM Service: ? Author Type: Physician Type: Progress Notes Filed: 11/15/2022 8:00 PM Note Text: CC: right ankle injury HPI: This 52 year old male with PMH indicated below presents today for follow up of right ankle fracture. Patient states that he injured the Right Ankle on 10/28/2022. He states that he went to Urgent Care on 10/30/2022 where x-rays were taken and he was told that he had a right ankle fracture. He states that he was placed in a posterior splint. Since the previous visit he has been NWB with CAM boot and knee scooter. There was concern at the previous visit for deltoid ligament injury so an MRI was ordered. She is here to review the results of the MRI. Denies any other pedal complaints. No primary care provider on file. PAST MEDICAL HISTORY Diagnosis Date Essential hypertension Current Outpatient Medications Medication Sig Dispense Refill metoprolol tartrate, short acting, (LOPRESSOR) 50 mg tablet Take 50 mg by mouth twice daily. lisinopril (ZESTRIL) 20 mg tablet Take 1 tablet by mouth every afternoon. ibuprofen (MOTRIN) 200 mg tablet Take 200 mg by mouth every 6 hours as needed. No current facility-administered medications for this visit. ALLERGIES No Known Allergies PAST SURGICAL HISTORY Procedure Laterality Date KNEE SURGERY HX Right Social History Tobacco Use Smoking status: Former Types: Cigarettes Quit date: 2012 Years since quittin.7 Smokeless tobacco: Former Quit date: 2022 Substance Use Topics Alcohol use: Yes Comment: social Drug use: Never History reviewed. No pertinent family history. REVIEW OF SYSTEMS See Tech Note Physical examination: On General Observation: Patient is a pleasant, cooperative, well developed 52 year old adult male. The patient is alert and oriented to time, place and person. Patient has normal affect and mood. Resp 16 Ht 177.8 cm (5' 10 ) Wt 83.9 kg (185 lb) BMI 26.54 kg/m? Patient presents in CAM Boot Vascular: DP and PT pulses are palpable. CFT less than 3 seconds to all digits bilateral. Skin temperature is warm to warm from proximal to distal bilateral. Hair growth is noted. Positive edema noted overlying global right ankle. Neuro: Light touch intact bilateral. No clonus noted. Derm: Skin texture and turgor within normal limits. Toenails normal in appearance. Webspaces 1-4 clean, dry, intact bilateral. No rashes, subcutaneous nodules, or open lesions noted. No hyperkeratotic tissue. No ecchymosis noted. No fracture blisters noted. Musc: Ecchymosis is Absent to the right. Edema is moderate over the lateral malleolus. Edema is moderate over the medial malleolus. Palpation to the medial ankle is non-painful. No high fibular pain is noted. There is not pain to palpation of the syndesmosis or with external rotation of the foot at the ankle joint. Pain to palpation is noted overlying the lateral malleolus. Pain to palpation is noted overlying the ATFL. The peroneals appear to be intact and are tender. No pain to the fifth metatarsal base. No pain to the medial aspect of the midfoot or navicular tuberosity. No pain to palpation anterior calcaneal process. Ankle stability testing deferred due to known fracture. Muscle strength testing is full. Last MRI Ankle - Impression Only MRI ANKLE WO IVCON RIGHT Exam End: 11/05/2022 2:22 PM (Final result) Impression: IMPRESSION: 1. Minimally displaced oblique fracture through the lateral malleolus. 2. Complete rupture of the anterior talofibular ligament. 3. Calcaneofibular ligament is not visualized and is most likely torn. 4. Spring ligament is not clearly visualized. 5. Small tibiotalar joint effusion.... Impression: This is a 52 year old patient presenting with closed ankle fracture of the right ankle. Plan: A comprehensive history and physical examination were preformed. The patient was educated on clinical and radiographic findings, diagnosis and treatment plans. Patient state that he understands all that has been explained and all questions were answered to his apparent satisfaction. - Etiology and tx options were discussed in detail with the pt. - Reviewed the MRI with the patient which did not show any deltoid ligament injury. - We discussed that he should continue NWB with CAM boot for 1 more week. In 1 week he could start placing some weight on the foot with CAM boot in the house. - Follow up 2 weeks Total patient care time w/ pt was at least 45 minutes w/ at least 50% of the time spent reviewing the results of the recent imaging including MRI counseling the pt on treatment options and coordinating their care. Charles Danielle DPM PGY- 3 I personally saw and evaluated the patient. I reviewed the resident's note. I agree with the resident's assessment and plan unless otherwise noted. Ahsan Mayen DPM, [facility] 11-11-2022 History of Presen t illness Narrative CC: right ankle injury HPI: This 52 year old male with PMH indicated below presents today for follow up of right ankle fracture. Patient states that he injured the Right Ankle on 10/28/2022. He states that he went to Urgent Care on 10/30/2022 where x-rays were taken and he was told that he had a right ankle fracture. He states that he was placed in a posterior splint. Since the previous visit he has been NWB with CAM boot and knee scooter. There was concern at the previous visit for deltoid ligament injury so an MRI was ordered. She is here to review the results of the MRI. Denies any other pedal complaints. No primary care provider on file. PAST MEDICAL HISTORY Diagnosis Date Essential hypertension Current Outpatient Medications Medication Sig Dispense Refill metoprolol tartrate, short acting, (LOPRESSOR) 50 mg tablet Take 50 mg by mouth twice daily. lisinopril (ZESTRIL) 20 mg tablet Take 1 tablet by mouth every afternoon. ibuprofen (MOTRIN) 200 mg tablet Take 200 mg by mouth every 6 hours as needed. No current facility-administered medications for this visit. ALLERGIES No Known Allergies PAST SURGICAL HISTORY Procedure Laterality Date KNEE SURGERY HX Right Social History Tobacco Use Smoking status: Former Types: Cigarettes Quit date: 2012 Years since quittin.7 Smokeless tobacco: Former Quit date: 2022 Substance Use Topics Alcohol use: Yes Comment: social Drug use: Never History reviewed. No pertinent family history. REVIEW OF SYSTEMS See Tech Note Physical examination: On General Observation: Patient is a pleasant, cooperative, well developed 52 year old adult male. The patient is alert and oriented to time, place and person. Patient has normal affect and mood. Resp 16 Ht 177.8 cm (5' 10 ) Wt 83.9 kg (185 lb) BMI 26.54 kg/m Patient presents in CAM Boot Vascular: DP and PT pulses are palpable. CFT less than 3 seconds to all digits bilateral. Skin temperature is warm to warm from proximal to distal bilateral. Hair growth is noted. Positive edema noted overlying global right ankle. Neuro: Light touch intact bilateral. No clonus noted. Derm: Skin texture and turgor within normal limits. Toenails normal in appearance. Webspaces 1-4 clean, dry, intact bilateral. No rashes, subcutaneous nodules, or open lesions noted. No hyperkeratotic tissue. No ecchymosis noted. No fracture blisters noted. Musc: Ecchymosis is Absent to the right. Edema is moderate over the lateral malleolus. Edema is moderate over the medial malleolus. Palpation to the medial ankle is non-painful. No high fibular pain is noted. There is not pain to palpation of the syndesmosis or with external rotation of the foot at the ankle joint. Pain to palpation is noted overlying the lateral malleolus. Pain to palpation is noted overlying the ATFL. The peroneals appear to be intact and are tender. No pain to the fifth metatarsal base. No pain to the medial aspect of the midfoot or navicular tuberosity. No pain to palpation anterior calcaneal process. Ankle stability testing deferred due to known fracture. Muscle strength testing is full. Last MRI Ankle - Impression Only MRI ANKLE WO IVCON RIGHT Exam End: 11/05/2022 2:22 PM (Final result) Impression: IMPRESSION: 1. Minimally displaced oblique fracture through the lateral malleolus. 2. Complete rupture of the anterior talofibular ligament. 3. Calcaneofibular ligament is not visualized and is most likely torn. 4. Spring ligament is not clearly visualized. 5. Small tibiotalar joint effusion.... Impression: This is a 52 year old patient presenting with closed ankle fracture of the right ankle. Plan: A comprehensive history and physical examination were preformed. The patient was educated on clinical and radiographic findings, diagnosis and treatment plans. Patient state that he understands all that has been explained and all questions were answered to his apparent satisfaction. - Etiology and tx options were discussed in detail with the pt. - Reviewed the MRI with the patient which did not show any deltoid ligament injury. - We discussed that he should continue NWB with CAM boot for 1 more week. In 1 week he could start placing some weight on the foot with CAM boot in the house. - Follow up 2 weeks Total patient care time w/ pt was at least 45 minutes w/ at least 50% of the time spent reviewing the results of the recent imaging including MRI counseling the pt on treatment options and coordinating their care. Charles Danielle DPM PGY- 3 I personally saw and evaluated the patient. I reviewed the resident's note. I agree with the resident's assessment and plan unless otherwise noted. Ahsan Mayen DPM, [facility] REVIEW OF SYSTEMS: GENERAL: Well developed, well nourished. No acute distress PAIN: Pain yes CARDIOVASCULAR: Negative for chest pain, leg swelling and palpations. MSK: Positive for joint swelling SKIN: Negative for lesions, rash, itching, metal sensitivity NEURO: Negative for seizure, trauma, numbness/tingling of extremities. ENDOCRINE: Negative for diabetic associated symptoms HEMATOLOGY: Negative for excessive bleeding, clots, bleeding disorders. documented in this encounter [facility] 11-08-2022 Note HNO ID: [id number] Author: Real Kebede Tech Service: ? Author Type: Bag Bleacher Type: Progress Notes Filed: 11/15/2022 8:00 PM Note Text: REVIEW OF SYSTEMS: GENERAL: Well developed, well nourished. No acute distress PAIN: Pain yes CARDIOVASCULAR: Negative for chest pain, leg swelling and palpations. MSK: Positive for joint swelling SKIN: Negative for lesions, rash, itching, metal sensitivity NEURO: Negative for seizure, trauma, numbness/tingling of extremities. ENDOCRINE: Negative for diabetic associated symptoms HEMATOLOGY: Negative for excessive bleeding, clots, bleeding disorders. [facility] 11-02-2022 Note HNO ID: [id number] Author: Yumiko Padilla MA Service: ? Author Type: Custom Dressmaker Type: Progress Notes Filed: 11/21/2022 4:36 PM Note Text: REVIEW OF SYSTEMS: GENERAL: Well developed, well nourished. No acute distress PAIN: Pain 5/10 CARDIOVASCULAR: Hypertension MSK: Negative for joint swelling SKIN: Negative for lesions, rash, itching, metal sensitivity NEURO: Negative for seizure, trauma, numbness/tingling of extremities. ENDOCRINE: Negative for diabetic associated symptoms HEMATOLOGY: Negative for excessive bleeding, clots, bleeding disorders. Yumiko Padilla MA [facility] 10-31-2022 Miscellaneous Notes Spoke with patient and appointment was made Xiomara Jean-Baptiste ----- Message from Betsy Hankins sent at 10/30/2022 10:52 AM EDT ----- Regarding: Orthopedics / Open Ankle: Fracture Broken / Faheem requested Orthopedics / Open Ankle: Fracture Broken / Faheem requested Patient has been identified by name and Date of (Y/N): y Patient: Rojelio Ruiz Date of : 1970 Previous Provider Seen: joanie, Dr Mayen did his son's sx a year ago, would like to see him Body Part(s) Identified: right ankle Diagnosis/Reason For Visit: fx Reason for the call/escalation: tool directive If reason for call/escalation is discharge from ED/ER or Hospital, which facility was the patient seen at: [facility] Was an appointment scheduled (Y/N): n Person calling if other than patient: pt Return call to if other than patient: pt Best contact number: [phone] Thank you, Betsy Hankins October 30, 2022 10:52 AM documented in this encounter [facility] Closed fracture of distal end of right fibula with routine healing, unspecified fracture morphology, subsequent encounter- Primary [facility] Diagnosis Closed fracture of distal end of right fibula with routine healing, unspecified fracture morphology, subsequent encounter- Primary [facility] Instruction Text No instruction information i s available. [facility] Reason for referral (narrative)* Diagnostic Procedure Only (Routine) - Pending Review Specialty Diagnoses / Procedures Referred By Contac t Referred To Contact XR IMAGING Diagnoses Closed fracture of distal end of right fibula with routine healing, unspecified fracture morphology, subsequent encounter Procedures XR ANKLE GENERAL 3V AP/LAT/OBL RIGHT RADEX ANKLE COMPLETE MINIMUM 3 VIEWS Ahsan Mayen DPM [address] [place] [address] [place] [address] Referral ID Status Reason Start Date Expiration Date Visits Requested Visits Authorized [id number] Pending Review Auto-Generat ed Referral 11/22/2022 12/22/2023 1 1 [facility] for referral (narrative)* Diagnostic Procedure Only (Routine) - Pending Review Specialty Diagnoses / Procedures Referred By Contac t Referred To Contact XR IMAGING Diagnoses Closed fracture of distal end of right fibula with routine healing, unspecified fracture morphology, subsequent encounter Procedures XR ANKLE GENERAL 3V AP/LAT/OBL RIGHT RADEX ANKLE COMPLETE MINIMUM 3 VIEWS Ahsan Mayen DPM [address] [place] [address] [place] [address] Referral ID Status Reason Start Date Expiration Date Visits Requested Visits Authorized [id number] Pending Review Auto-Generat ed Referral 3 02/09/2024 1 1 [facility] Summary Purpose Family History No Family History Records FoundNo Family History Records FoundNo Family History Records Found Advance Directives No Advanced Directives Records FoundNo Advanced Directives Records FoundNo Advanced Directives Records Found Additional Source Comments INFORMATION SOURCE (unrecogn ized section and content) DATE CREATED AUTHOR AUTHOR'S ORGANIZ ATION 11/02/2022 [facility] [place] DATE CREATED AUTHOR AUTHOR'S ORGANIZ ATION 02/01/2023 [facility] Source Comments (unrecognize d section and content) In the event this informatio n is protected by the Federal Confidentiality of Alcohol and Drug Abuse Patient Records regulations: The Federal rules restrict any use of the information to criminally investigate or prosecute any alcohol or drug abuse patient.[facility] the event this information is protected by the Federal Confidentiality of Alcohol and Drug Abuse Patient Records regulations: The Federal rules restrict any use of the information to criminally investigate or prosecute any alcohol or drug abuse patient.[facility] the event this information is protected by the Federal Confidentiality of Alcohol and Drug Abuse Patient Records regulations: The Federal rules restrict any use of the information to criminally investigate or prosecute any alcohol or drug abuse patient.[facility] the event this information is protected by the Federal Confidentiality of Alcohol and Drug Abuse Patient Records regulations: The Federal rules restrict any use of the information to criminally investigate or prosecute any alcohol or drug abuse patient.[facility] the event this information is protected by the Federal Confidentiality of Alcohol and Drug Abuse Patient Records regulations: The Federal rules restrict any use of the information to criminally investigate or prosecute any alcohol or drug abuse patient.[facility] Reason for Visit (unrecogniz ed section and content) Reason Comments Established Patient Follow Up Reason Comments Follow Up Reason Comments Follow Up Pain (unrecognized sect ion and content) No Status Records FoundNo Status Records Found FOR RECORDS PERTAINING TO PATIENTS WHO ARE OR HAVE BEEN ENROLLED IN A CHEMICAL DEPENDENCY/SUBSTANCEABUSE PROGRAM, SOME INFORMATION MAY BE OMITTED. This clinical summary was aggregated from multiple sources. Caution should be exercised in using it in the provision of clinical care. This summary normalizes information from multiple sources, and as a consequence, information in this document may materially change the coding, format and clinical context of patient data. In addition, data may be omitted in some cases. CLINICAL DECISIONS SHOULD BE BASED ON THE PRIMARY CLINICAL RECORDS. [facility]. provides no warranty or guarantee of the accuracy or completeness of information in this document.
[2023-03-08 22:49] LABS: AST(SGOT) 25 U/L (15-37); Alanine Aminotransfer ALT/SGPT 42 U/L (16-61); Albumin, Serum 4.1 g/dL (3.2-5.0); Alkaline Phosphatase 91 U/L (45-117); Anion Gap 5 (5-15); BUN 30 mg/dL (7-18); BUN/Creat Ratio 20.3 RATIO (10-20); Chloride 102 mmol/L (98-107); Cholesterol 172 mg/dL (200); Creatinine, Serum 1.48 mg/dL (0.70-1.30); EST Glomerular Filtration Rate 53 mL/min (>60); Est Glom Filt Rate - Afr Amer 64 mL/min (>60); Glucose 104 mg/dL (74-106); High Density Lipoprotein 43 mg/dL; Potassium 4.1 mmol/L (3.5-5.1); Protein, Total 8.1 g/dL (6.4-8.2); Sodium Level 135 mmol/L (136-145); Triglycerides 200 mg/dL; Very Low Density Lipoprotein 40 mg/dL (5-40)
== END | disposition home or self-care (01) ==
PROVIDERS: PCP Nurse Practitioner; Visit Provider Nurse Practitioner
DX: I10 Essential (primary) hypertension (principal); E78.1 Pure hyperglyceridemia
CPT/HCPCS: 80053; 80061

== ENCOUNTER → 2023-06-11 | Outpatient (CLI) | payer BC, SELFPAY ==
[2023-06-11 21:48] LABS: Basophil% 0.6 % (0-1); Eosinophil# 0.53 X10^3/uL; Eosinophils% 3.1 % (0-5); Hemoglobin 13.8 g/dL (13.0-16.5); Lymphocyte % 20.8 % (19-41); Mean Corp Hgb Conc 34.5 g/dL (32-36); Mean Corpuscular Hgb 29.1 pg (27.0-32.0); Mean Corpuscular Volume 84.2 fL (80-94); Mean Platelet Vol. 9.5 fl (6.2-12.0); Monocyte# 1.58 X10^3/uL; Monocyte% 9.4 % (0-10); NRBC Flagged by Analyzer 0 % (0-5); Neutrophil # 11.03 X10^3/uL (2.7-7.7); Neutrophil % 65.4 % (47-70); POSITIVE DIFFERENTIAL YES; Platelet Count 368 K/mm3 (150-450); RBC Distribution Width CV 12.6 % (11.6-14.6); RBC Distribution Width SD 38.4 fl (35.1-43.9); Red Blood Count 4.75 M/mm3 (4.6-6.2); White Blood Count 16.9 K/mm3 (4.4-11.0)
[2023-06-11 21:49] LABS: Differential Indicated SCAN CRITERIA MET
[2023-06-11 22:13] LABS: Differential Comment SCANNED
[2023-06-12 10:38] LABS: Pathologist Review Reviewed
[2023-06-13 15:08] LABS: EBV Acute VCA IgM < 36.0 U/mL (0.0-35.9)
== END | disposition home or self-care (01) ==
PROVIDERS: PCP Nurse Practitioner; Visit Provider Nurse Practitioner
DX: R50.9 Fever, unspecified (principal); J01.00 Acute maxillary sinusitis, unspecified; R05.9 Cough, unspecified; R06.02 Shortness of breath; R53.83 Other fatigue
CPT/HCPCS: 85025; 86664; 86665